=== PATIENT | female | born 1990 | race Caucasian/White ===

== ENCOUNTER 2018-03-31 14:29 | Outpatient (CLI) | payer MEDICAID ==
[2018-03-31 16:33] LABS: ADD UMIC YES; UR ASCORBIC ACID 40 mg/dL (NEGATIVE); UR BACTERIA FEW /HPF (NONE SEEN); UR BILIRUBIN (Dip) NEGATIVE (NEGATIVE); UR BLOOD (Dip) NEGATIVE (NEGATIVE); UR CLARITY CLEAR (CLEAR); UR COLOR YELLOW (YELLOW); UR GLUCOSE (Dip) NEGATIVE (NEGATIVE); UR KETONES (Dip) 1+ mg/dL (NEGATIVE); UR LEUKOCYTE ESTERASE (Dip) 3+ Leu/ul (NEGATIVE); UR NITRITE (Dip) NEGATIVE (NEGATIVE); UR RBC 0 /HPF (0-5); UR SPECIFIC GRAVITY (Dip) 1.017 (1.003-1.030); UR SQUAMOUS EPITHELIAL CELL MANY /HPF (FEW); UR TOTAL PROTEIN (Dip) NEGATIVE (NEGATIVE); UR UROBILINOGEN (Dip) 1+ mg/dL (NEGATIVE); UR WBC 8 /HPF (0-5)
== END 2018-03-31 17:50 | disposition home or self-care (01) ==
LOC: OBT 14:29 → L-D 14:29 → OBT 15:20 → L-D 15:20 → OBT 17:50
DX: O62.9 Abnormality of forces of labor, unspecified (principal); Z3A.39 39 weeks gestation of pregnancy
CPT/HCPCS: 76815; 76818; 81001; 87086

== ENCOUNTER 2018-04-01 23:33 | Inpatient (IN) | payer MEDICAID ==
[2018-04-02] MEDS ORDERED: IBUPROFEN 600 MG TAB PO (01:00)
[2018-04-02] MEDS ORDERED: METHYLERGONOVINE 0.2 MG INJ IM ×2 (01:00→21:30)
[2018-04-02] MEDS ORDERED: OXYTOCIN 30 UNITS/LR 500 ML IV ×3 (01:00→21:30)
[2018-04-02] MEDS ORDERED: CARBOPROST 250 MCG INJ IM ×2 (01:00→21:30)
[2018-04-02] MEDS ORDERED: LIDOCAINE 1% (MPF) 30 ML INJ INJ (01:00)
[2018-04-02] MEDS ORDERED: MISOPROSTOL 200 MCG TAB PR ×2 (01:00→21:30)
[2018-04-02] MEDS ORDERED: OXYCODONE/ACETAMINOPHEN (5/325) TAB PO (01:00)
[2018-04-02] MEDS: BUTORPHANOL 2 MG INJ IV ×3 (02:08→09:15)
[2018-04-02] MEDS: LACTATED RINGER'S 1,000 ML IV ×6 (02:08→20:23)
[2018-04-02 02:13] LABS: ADD MAN DIFF? NO; BASOPHILS % 0.4 % (0.0-2.0); EOSINOPHILS % 0.3 % (0.0-7.0); HEMATOCRIT 36.5 % (37.0-47.0); HEMOGLOBIN 12.3 g/dl (12.0-16.0); LYMPHOCYTES # 1.3 10^3/ul (0.8-2.9); LYMPHOCYTES % 18.3 % (15.0-51.0); MEAN CORPUSCULAR HEMOGLOBIN 31.1 pg (29.0-33.0); MEAN CORPUSCULAR HGB CONC 33.7 g/dl (32.0-37.0); MEAN CORPUSCULAR VOLUME 92.2 fl (82.0-101.0); MEAN PLATELET VOLUME 9.7 fl (7.4-10.4); MONOCYTE # 0.6 10^3/ul (0.3-0.9); MONOCYTES % 8.6 % (0.0-11.0); NEUTROPHIL # 5.1 10^3/ul (1.6-7.5); PLATELET COUNT 194 10^3/UL (140-415); RED BLOOD COUNT 3.96 10^6/ul (4.20-5.40)
[2018-04-02 02:13] LABS: WHITE BLOOD COUNT 7.1 10^3/ul (4.8-10.8)
[2018-04-02 02:33] LABS: INR 0.86; PROTIME 11.8 Sec (11.9-14.9); PT RATIO 0.9
[2018-04-02 02:34] LABS: PARTIAL THROMBOPLASTIN TIME 28.2 Sec (23.0-35.0)
[2018-04-02] MEDS ORDERED: METHYLERGONOVINE 0.2 MG INJ (07:00)
[2018-04-02] MEDS ORDERED: LIDOCAINE 2% (SDV) 5 ML INJ (07:00)
[2018-04-02] MEDS ORDERED: MINERAL OIL LIGHT 10 ML VIAL TOP (08:00)
[2018-04-02] MEDS: OXYTOCIN 30 UNITS/LR 500 ML IV ×2 (08:21→22:34)
[2018-04-02] MEDS ORDERED: FENTAnyl 2MCG/ML-ROPIV 0.2% 100 ML (13:48)
[2018-04-02] MEDS ORDERED: FENTAnyl 2MCG/ML-ROPIV 0.2% 100 ML BAG EPI (14:30)
[2018-04-02] MEDS ORDERED: NALOXONE (0.4 MG/ML) INJ IV ×2 (14:30→20:30)
[2018-04-02] MEDS ORDERED: ONDANSETRON 4 MG INJ IV ×3 (14:30→20:30)
[2018-04-02] MEDS ORDERED: DIPHENHYDRAMINE 50 MG INJ IV ×3 (14:30→20:30)
[2018-04-02] MEDS ORDERED: NALBUPHINE HCL (10 MG/1 ML) INJ IV ×2 (14:30→20:30)
[2018-04-02 15:03] LABS: RAPID PLASMA REAGIN NONREACTIVE (NR)
[2018-04-02] MEDS ORDERED: CEFAZOLIN 2 GM/50 ML (PMX) 50 ML IVPB ×2 (18:52→19:00)
[2018-04-02] MEDS ORDERED: LIDOCAINE 100 MG SYRINGE (19:42)
[2018-04-02] MEDS ORDERED: OXYTOCIN 10 UNIT INJ (20:07)
[2018-04-02] MEDS ORDERED: MIDAZOLAM 1 MG/ML 2 ML INJ (20:09)
[2018-04-02] MEDS ORDERED: ONDANSETRON 4 MG INJ (20:09)
[2018-04-02] MEDS ORDERED: METOCLOPRAMIDE 10 MG INJ (20:09)
[2018-04-02] MEDS ORDERED: morphine SULFATE/PF (10 MG/10 ML) INJ (20:12)
[2018-04-02] MEDS ORDERED: METOCLOPRAMIDE 10 MG INJ IV (20:30)
[2018-04-02] MEDS ORDERED: ZOLPIDEM 5 MG TAB PO (20:30)
[2018-04-02] MEDS ORDERED: MEPERIDINE 25 MG INJ IV (20:30)
[2018-04-02] MEDS ORDERED: MIDAZOLAM 1 MG/ML 2 ML INJ IV (20:30)
[2018-04-02] MEDS ORDERED: HYDROmorphONE 0.5 MG/0.5 ML SYG IV ×2 (20:30)
[2018-04-02] MEDS ORDERED: AZITHROMYCIN 500MG/NS (PMX) 250 ML (21:00)
[2018-04-02] MEDS ORDERED: DEXTROSE 5%-LR 1,000 ML IV (21:03)
[2018-04-02] MEDS ORDERED: METHYLERGONOVINE 0.2 MG TAB PO (21:30)
[2018-04-02] MEDS: AZITHROMYCIN 500MG/NS (PMX) 250 ML IVPB (21:32)
[2018-04-02] MEDS: ACETAMINOPHEN 1000MG/100ML IV 100 ML IVPB (21:40)
[2018-04-02] MEDS: CITRIC ACID/NA CITRATE 30 ML CUP PO (22:50)
[2018-04-03] MEDS: OXYTOCIN 30 UNITS/LR 500 ML IV (02:35)
[2018-04-03] MEDS: KETOROLAC 30 MG INJ IV ×2 (02:36→16:46)
[2018-04-03 08:14] LABS: HEMATOCRIT 31.2 % (37.0-47.0); HEMOGLOBIN 10.5 g/dl (12.0-16.0); MEAN CORPUSCULAR HEMOGLOBIN 31.6 pg (29.0-33.0); MEAN CORPUSCULAR HGB CONC 33.7 g/dl (32.0-37.0); PLATELET COUNT 177 10^3/UL (140-415); RED BLOOD COUNT 3.32 10^6/ul (4.20-5.40); RED CELL DISTRIBUTION WIDTH 13.2 % (11.5-14.5)
[2018-04-03 08:14] LABS: WHITE BLOOD COUNT 7.5 10^3/ul (4.8-10.8)
[2018-04-03 08:22] LABS: ADD MAN DIFF? YES; POSITIVE DIFF @See below
[2018-04-03] MEDS: SENNA/DOCUSATE NA (8.6MG/50MG) TAB PO ×2 (08:53→21:38)
[2018-04-03 10:23] LABS: BAND NEUTROPHILS #M 2.7 10^3/ul (0.0-0.6); BAND NEUTROPHILS % (M) 37 % (0-4); LYMPHOCYTES #M 0.6 10^3/ul (0.8-2.9); LYMPHOCYTES % (M) 8 % (15-51); MONOCYTE #M 0.5 10^3/ul (0.3-0.9); MONOCYTES % (M) 7 % (0-11); MYELOCYTES % (M) 1 % (0-0); PLATELET ESTIMATE NORMAL; POIKILOCYTOSIS 1+ (0-0); POLYCHROMASIA 1+ (0-0); SEG NEUT #M 3.7 10^3/ul (1.6-7.5); SEGMENTED NEUTROPHILS (M) % 47 % (39-77); SMUDGE%M 19 % (0-0); TOXIC GRANULATION 1+ (0-0)
[2018-04-03] MEDS ORDERED: HYDROCODONE/APAP (5/325) TAB NGT (11:00)
[2018-04-03] MEDS ORDERED: DIPHTH/TET/ACEL PERTUSS (ADULT) 0.5 ML VIAL IM* (11:00)
[2018-04-03] MEDS: LACTATED RINGER'S 1,000 ML IV (11:43)
[2018-04-03] MEDS: HYDROCODONE/APAP (5/325) TAB GTB ×2 (14:01→21:38)
[2018-04-03] MEDS: IBUPROFEN 800 MG TAB PO (21:38)
[2018-04-04] MEDS: HYDROCODONE/APAP (5/325) TAB GTB ×3 (05:31→21:26)
[2018-04-04] MEDS: IBUPROFEN 800 MG TAB PO ×3 (05:31→21:26)
[2018-04-04] MEDS: LANOLIN HPA 1 PKT TOP (08:41)
[2018-04-04] MEDS: SENNA/DOCUSATE NA (8.6MG/50MG) TAB PO ×2 (08:41→21:25)
[2018-04-04] MEDS: MAGNESIUM HYDROXIDE 30ML CUP PO (10:18)
[2018-04-05] MEDS: IBUPROFEN 800 MG TAB PO ×2 (05:39→15:04)
[2018-04-05] MEDS: HYDROCODONE/APAP (5/325) TAB GTB ×2 (05:39→15:03)
[2018-04-05] MEDS: SENNA/DOCUSATE NA (8.6MG/50MG) TAB PO (08:53)
[2018-04-05] MEDS: MAGNESIUM HYDROXIDE 30ML CUP PO (08:54)
[2018-04-05] MEDS ORDERED: MEASLES,MUMPS,RUBELLA VACCINE INJ SC* (09:00)
[2018-04-05] MEDS: DIPHTH/TET/ACEL PERTUSS (ADULT) 0.5 ML VIAL IM* (14:55)
== END 2018-04-05 16:10 | disposition home or self-care (01) | DRG 788 ==
LOC: OBT 23:33 → L-D 23:37 → PP1 04-02 23:19
PROVIDERS: Obstetrics & Gynecology
PROC: 10D00Z1 Extraction of Products of Conception, Low, Open Approach (ICD-10-PCS; principal; 2018-04-02 19:30)
DX: O62.0 Primary inadequate contractions (principal); Z3A.39 39 weeks gestation of pregnancy; Z37.0 Single live birth; O36.63X0 Maternal care for excessive fetal growth, third trimester, not applicable or unspecified; O35.8XX0 Maternal care for other (suspected) fetal abnormality and damage, not applicable or unspecified
CPT/HCPCS: 62319; 85025; 85610; 85730; 86592; 86850; 86900; 86901; 90686; 90715; 99464